=== PATIENT | male | born 1965 | race Caucasian/White ===

== ENCOUNTER 2024-08-24 14:55 | Outpatient (CLI) | payer OTHER | END 2024-08-24 14:56 | disposition home or self-care (01) | LOC: BICCT 14:55 | PROVIDERS: ATTEND Student in an Organized Health Care Education/Training Program | DX: E78.2 Mixed hyperlipidemia (principal); E78.1 Pure hyperglyceridemia; Z82.49 Family history of ischemic heart disease and other diseases of the circulatory system | CPT/HCPCS: 75571 ==